=== PATIENT | female | born 1955 | race Caucasian/White ===

== ENCOUNTER → 2017-10-29 | Outpatient (REF) | payer BC, OTHER ==
[2017-10-29 15:58] LABS: CORTISOL PM 6.8 UG/DL (3.1-16.7)
[2017-10-29 15:58] LABS: TESTOSTERONE 112 NG/DL (14-76)
[2017-10-29 15:59] LABS: PROLACTIN 5.3 NG/ML
== END ==
LOC: M LABDRAW1 14:34
DX: L68.0 Hirsutism (principal)
CPT/HCPCS: 84146

== ENCOUNTER 2018-01-04 16:42 | Emergency (ER) | payer MEDICARE, BC ==
[2018-01-04] MEDS ORDERED: HEPARIN SOD (PORCINE) 5000 UNITS/ML VIAL (16:43)
[2018-01-04] MEDS ORDERED: HEPARIN 25,000 UNITS/250 ML D5W BAG (100 UNITS/ML) (16:43)
[2018-01-04] MEDS ORDERED: EPINEPHrine 1MG/10ML SYRINGE 1.5IN (16:43)
[2018-01-04] MEDS ORDERED: SODIUM BICARBONATE 8.4% INJ 50 ML SYRINGE (16:43)
[2018-01-04] MEDS ORDERED: ROCURONIUM BROMIDE 50 MG/5 ML VIAL (16:43)
[2018-01-04] MEDS ORDERED: ETOMIDATE INJ 20MG/10ML VIAL (16:43)
[2018-01-04 17:36] LABS: BASO % 0.2 % (0.0-1.0); HEMATOCRIT 41.9 % (36.0-47.0); IMMATURE GRANULOCYTE % 0.3 % (0-3.0); LYMPH # 1.8 10^3/uL (1.5-4.5); LYMPH % 14.2 % (24.0-44.0); MEAN CORPUSCULAR HEMOGLOBIN 30.4 pg (27.0-33.0); MEAN CORPUSCULAR HGB CONC 33.4 g/dl (32.0-36.5); MEAN CORPUSCULAR VOLUME 90.9 fl (80.0-96.0); MONO % 7.9 % (0.0-5.0); NEUTROPHILS # 9.7 10^3/uL (1.8-7.7); NEUTROPHILS % 77.4 % (36.0-66.0); PLATELET COUNT, AUTOMATED 281 10^3/uL (150-450); RED BLOOD COUNT 4.61 10^6/uL (4.00-5.40); RED CELL DISTRIBUTION WIDTH 13.6 % (11.5-14.5); WHITE BLOOD COUNT 12.5 10^3/uL (4.0-10.0)
[2018-01-04 17:49] LABS: ANION GAP 10 MEQ/L (8-16); BLOOD UREA NITROGEN 15 MG/DL (7-18); CARBON DIOXIDE LEVEL 21 MEQ/L (21-32); CHLORIDE LEVEL 109 MEQ/L (98-107); CK-MB VALUE MASS < 1.0 NG/ML (<3.6); CPK CREATINE PHOSPHOKINASE 58 U/L (26-192); CREATININE FOR GFR 1.18 MG/DL (0.55-1.30); GLOMERULAR FILTRATION RATE 49.1 (>45); GLUCOSE, FASTING 148 MG/DL (70-100); MB/CK RELATIVE INDEX 1.72 (< OR =4); POTASSIUM SERUM 4.2 MEQ/L (3.5-5.1); SODIUM LEVEL 140 MEQ/L (136-145); TROPONIN I < 0.02 NG/ML (< 0.10)
[2018-01-04] MEDS ORDERED: methylPREDNISolone INJ 125 MG/2 ML VIAL (J2930) IV ×2 (19:00→20:15)
[2018-01-04] MEDS ORDERED: IPRATROPIUM 0.5MG/ALBUTEROL 2.5MG INH SOL UD 3ML (DUONEB)(J7620) NEB (19:00)
[2018-01-04] MEDS ORDERED: KETOROLAC 30 MG/ML VIAL (J1885) IV (19:00)
[2018-01-04] MEDS ORDERED: ISOVUE-370 76% 100ML VIAL (Q9967) As Ordered (19:02)
[2018-01-04] MEDS ORDERED: PROPOFOL 1,000 MG/100 ML VIAL As Ordered (20:09)
[2018-01-04] MEDS: ETOMIDATE INJ 20MG/10ML VIAL IV (20:17)
[2018-01-04] MEDS: EPINEPHrine 1MG/10ML SYRINGE 1.5IN IV ×2 (20:22)
[2018-01-04] MEDS: TENECTEPLASE 50 MG KIT (TNKase)(J3101) IV (20:24)
[2018-01-04] MEDS: SODIUM BICARBONATE 8.4% INJ 50 ML SYRINGE IV (20:27)
[2018-01-04] MEDS ORDERED: NOREPINEPHRINE 4 MG/4 ML AMP As Ordered (20:27)
[2018-01-04] MEDS: NOREPINEPHRINE BITARTRATE 8 MG in D5W 492 ML IV ×2 (20:42→20:43)
[2018-01-04 21:02] LABS: ABG BASE EXCESS -16.1 (-2.0-2.0); ABG HCO3 16.7 MEQ/L (22.0-26.0); ABG O2 SATURATION 75.4 % (95.0-99.0); ABG PARTIAL PRESSURE O2 57.8 mmHg (75.0-100.0); ABG STANDARD HCO3 12.5 MEQ/L (22.0-26.0); ABG TOTAL CO2 18.9 MEQ/L (23.0-31.0)
[2018-01-04] MEDS: HEPARIN SOD (PORCINE) 5000 UNITS/ML VIAL IV (21:02)
[2018-01-04] MEDS: HEPARIN DRIP 25,000 UNITS in APPROPRIATE DILUENT 1 EA IV (21:03)
[2018-01-04 21:07] LABS: ABG pH (ARTERIAL) 6.998 UNITS (7.350-7.450)
[2018-01-04 21:08] LABS: ABG PARTIAL PRESSURE CO2 69.8 mmHg (35.0-45.0)
[2018-01-04] MEDS: ROCURONIUM BROMIDE 50 MG/5 ML VIAL IV (21:09)
[2018-01-04 21:19] LABS: INR 1.01; PROTHROMBIN TIME 13.4 SECONDS (12.4-14.5)
== END 2018-01-04 21:38 | disposition short-term general hospital (02) ==
LOC: M ED 16:42
DX: I46.9 Cardiac arrest, cause unspecified (principal); I21.19 ST elevation (STEMI) myocardial infarction involving other coronary artery of inferior wall; E78.5 Hyperlipidemia, unspecified; J44.9 Chronic obstructive pulmonary disease, unspecified; D68.51 Activated protein C resistance; F32.9 Major depressive disorder, single episode, unspecified; K21.9 Gastro-esophageal reflux disease without esophagitis; F17.200 Nicotine dependence, unspecified, uncomplicated; Z88.4 Allergy status to anesthetic agent; Z79.899 Other long term (current) drug therapy
CPT/HCPCS: Q9967

== ENCOUNTER 2018-04-02 12:32 | Emergency (ER) | payer MEDICARE ==
[2018-04-02] MEDS: NS 500 ML IV (13:30)
[2018-04-02 13:51] LABS: BASO % 0.1 % (0.0-1.0); EOS # 0.1 10^3/uL (0.0-0.50); EOS % 0.8 % (0.0-3.0); HEMOGLOBIN 12.6 g/dl (12.0-15.5); IMMATURE GRANULOCYTE % 0.3 % (0-3.0); LYMPH # 2.1 10^3/uL (1.5-4.5); MEAN CORPUSCULAR HEMOGLOBIN 29.9 pg (27.0-33.0); MEAN CORPUSCULAR HGB CONC 32.3 g/dl (32.0-36.5); MEAN CORPUSCULAR VOLUME 92.4 fl (80.0-96.0); MONO # 0.5 10^3/uL (0.0-0.8); MONO % 7.2 % (0.0-5.0); NEUTROPHILS # 4.6 10^3/uL (1.8-7.7); NEUTROPHILS % 62.6 % (36.0-66.0); PLATELET COUNT, AUTOMATED 274 10^3/uL (150-450); RED BLOOD COUNT 4.22 10^6/uL (4.00-5.40); RED CELL DISTRIBUTION WIDTH 14.2 % (11.5-14.5); WHITE BLOOD COUNT 7.4 10^3/uL (4.0-10.0)
[2018-04-02 14:20] LABS: ALBUMIN 3.4 GM/DL (3.2-5.2); ALBUMIN/GLOBULIN RATIO 0.94 (1.00-1.93); ALKALINE PHOSPHATASE 133 U/L (45-117); ALT/SGPT 14 U/L (12-78); AMYLASE 41 U/L (25-115); ANION GAP 11 MEQ/L (8-16); AST/SGOT 12 U/L (7-37); BILIRUBIN,DIRECT 0.1 MG/DL (0.0-0.2); BILIRUBIN,TOTAL 0.5 MG/DL (0.2-1.0); BLOOD UREA NITROGEN 15 MG/DL (7-18); CALCIUM LEVEL 8.7 MG/DL (8.8-10.2); CARBON DIOXIDE LEVEL 22 MEQ/L (21-32); CHLORIDE LEVEL 108 MEQ/L (98-107); CK-MB VALUE MASS 1.3 NG/ML (<3.6); CPK CREATINE PHOSPHOKINASE 59 U/L (26-192); CREATININE FOR GFR 1.11 MG/DL (0.55-1.30); GLOMERULAR FILTRATION RATE 52.5 (>45); GLUCOSE, FASTING 120 MG/DL (70-100); LIPASE 86 U/L (73-393); POTASSIUM SERUM 3.9 MEQ/L (3.5-5.1); SODIUM LEVEL 141 MEQ/L (136-145); TROPONIN I < 0.02 NG/ML (< 0.10)
[2018-04-02 15:28] LABS: INR 1.02; PROTHROMBIN TIME 13.5 SECONDS (12.1-14.4)
[2018-04-02 15:29] LABS: PARTIAL THROMBOPLASTIN TIME 29.9 SECONDS (25.4-37.6)
== END 2018-04-02 16:01 | disposition home or self-care (01) ==
LOC: M ED 12:32
DX: R19.7 Diarrhea, unspecified (principal); R11.10 Vomiting, unspecified; I25.2 Old myocardial infarction; Z88.4 Allergy status to anesthetic agent; Z79.899 Other long term (current) drug therapy; Z79.02 Long term (current) use of antithrombotics/antiplatelets
CPT/HCPCS: 71045

== ENCOUNTER → 2020-11-19 | Outpatient (CLI) | payer MEDICARE ==
[~2020-11-19] MED LIST: AMBI5TAB PO; ASPI81TA86 PO; ATOR80TA59 PO; BUPR15TA PO; CARV6.25 PO; CLOP75TA2 PO; LASI20TA3 PO; LISI-898 PO; LOVA10TA PO; PROT1TAB2 PO; RANI15TA PO; SPIR100T3 PO; TOPA100T12 PO; TOPA50TA8 PO; VITA400T15 PO
--- NOTE | 2020-11-19 13:54 | REP ---
INDICATION: DIAGNOSING LUNG NODULE R91.1. Evolving 7 mm nodular opacity in the posterior aspect of the left upper lobe. COMPARISON: Comparison prior chest CT studies from [facility] dated September 26, 2020, September 07, 2019, and February 16, 2019.. TECHNIQUE: Forty-eight minutes following the intravenous injection of a 13.26 mCi dose of F-18 FDG, three-dimensional PET scintigraphy is acquired from the skull base to the proximal thighs. Triplanar noncontrast CT scanning is acquired through the same anatomic range for attenuation correction, and image registration with scan parameters optimized to minimize radiation exposure to the patient. PET scintigraphy and CT datasets were fused and displayed on a workstation with multiplanar and projection display capability. FINDINGS: Head and neck soft tissues are unremarkable. There is no abnormal hypermetabolic uptake in the chest. No hilar or mediastinal aleksandra uptake is seen. No discernible uptake is seen in the posterior segment left upper lobe sub cm nodule seen on recent chest CT. Maximum SUV value 1.15. No discernible uptake. No other pulmonary parenchymal hypermetabolic uptake is seen within the chest. In the abdomen and pelvis, normal hepatic, splenic, gastrointestinal, and genitourinary FDG accumulation is seen. No abnormal abdominal or pelvic hypermetabolic uptake is appreciated. The gallbladder is surgically absent. IMPRESSION: Negative PET scintigraphy. No discernible uptake is seen in the small left upper lobe nodule. This negative report does not preclude malignancy. Short interval CT follow-up recommended. <Electronically signed by Mckay Velásquez > 11/19/20 [id number]
== END ==
LOC: M PLARAD 09:49
PROVIDERS: ATTEND Nurse Practitioner Adult Health
DX: R91.1 Solitary pulmonary nodule (principal)
CPT/HCPCS: 78815; A9552

== ENCOUNTER → 2021-05-21 | Outpatient (CLI) | payer MEDICARE ==
--- NOTE | 2021-05-21 11:31 | REP ---
INDICATION: ABNORMAL FINDING OF LUNG FIELD COMPARISON: Multiple the latest 09/26/2020 and multiple from an outside institution. TECHNIQUE: Standard helical technique without intravenous contrast FINDINGS: The mediastinum and pulmonary jessica are unchanged. No mass or adenopathy has developed. There are no pleural or pericardial effusions. There is no significant change in the appearance of the imaged upper abdomen or imaged osseous structures. Evaluation of the lung erwin shows no significant change in appearance of the irregular 7 mm size nodule in the left upper lobe apicoposterior segment close to the major fissure. It should be stated that the latest prior examination is a low-dose screening CT examination of the lungs rather than a standard noncontrast enhanced exam. There is a new irregular possibly spiculated 6 mm size nodule in the right upper lobe. The subtle ground-glass opacity seen previously in the right upper lobe does not appear to be significantly changed when the technical differences between the examinations are taken into consideration. There is a ground-glass opacity in the left lower lobe which measures 1.4 cm and is stable. There is a new 5 mm size nodule in the left upper lobe. IMPRESSION: 1. New lung nodules as described above. The nodule in the right upper lobe is particularly concerning. Although small, neoplasm cannot be ruled out. 2. Multiple asymmetric and ground-glass opacities as described above. 3. Other findings as described above. <Electronically signed by Houston Reed > 05/21/21 [id number]
== END ==
LOC: M PLAIMG 10:37
PROVIDERS: ATTEND Internal Medicine Pulmonary Disease
DX: R91.8 Other nonspecific abnormal finding of lung field (principal)

== ENCOUNTER → 2021-08-21 | Outpatient (CLI) | payer MEDICARE ==
[~2021-08-21] MED LIST changes: -LISI-898 PO; +LISI5TAB11 PO
== END ==
LOC: M RAD 10:49
PROVIDERS: ATTEND Internal Medicine Pulmonary Disease
DX: R91.8 Other nonspecific abnormal finding of lung field (principal)

== ENCOUNTER 2022-09-29 11:55 | Emergency (ER) | payer MEDICARE ==
[~2022-09-29] VITALS: Ht 162.6 cm; Wt 85.9 kg
[2022-09-29 13:03] LABS: BASO % 0.5 % (0.0-1.0); HEMATOCRIT 36.3 % (36.0-47.0); HEMOGLOBIN 11.5 g/dl (12.0-15.5); LYMPH # 1.1 10^3/uL (1.5-5.0); LYMPH % 28.3 % (24.0-44.0); MEAN CORPUSCULAR HEMOGLOBIN 31.4 pg (27.0-33.0); MEAN CORPUSCULAR HGB CONC 31.7 g/dl (32.0-36.5); MEAN CORPUSCULAR VOLUME 99.2 fl (80.0-96.0); MONO # 0.4 10^3/uL (0.0-0.8); MONO % 10.2 % (2.0-8.0); NEUTROPHILS # 2.4 10^3/uL (1.5-8.5); NEUTROPHILS % 59.8 % (36.0-66.0); PLATELET COUNT, AUTOMATED 200 10^3/uL (150-450); RED BLOOD COUNT 3.66 10^6/uL (4.00-5.40)
[2022-09-29 14:02] LABS: ALBUMIN 3.7 G/DL (3.2-5.2); BILIRUBIN,DIRECT 0.1 MG/DL (<0.4); BILIRUBIN,TOTAL 0.4 MG/DL (0.3-1.2); CALCIUM LEVEL 8.7 MG/DL (8.3-10.6); CREATININE FOR GFR 1.32 MG/DL (0.55-1.30); GLOMERULAR FILTRATION RATE 42.5 (>45); POTASSIUM SERUM 4.5 MMOL/L (3.5-5.1); THYROID STIMULATING HORMONE 7.212 uIU/ML (0.55-4.78)
[2022-09-29 14:51] VITALS: BP 144/68
[2022-09-29 15:45] LABS: TOTAL PROTEIN 6.4 G/DL (5.7-8.2)
== END 2022-09-29 14:54 | disposition home or self-care (01) ==
LOC: EDBD 11:55 → M ED 11:55
DX: R41.82 Altered mental status, unspecified (principal); I10 Essential (primary) hypertension; Z85.110 Personal history of malignant carcinoid tumor of bronchus and lung; Z87.891 Personal history of nicotine dependence; Z88.4 Allergy status to anesthetic agent; Z79.899 Other long term (current) drug therapy